=== PATIENT | female | born 1970 | race Caucasian/White ===

== ENCOUNTER → 2017-11-11 06:57 | Outpatient (CLI) | payer MEDICARE, SELFPAY ==
--- NOTE | 2017-11-11 09:54 | STRESSREP ---
Stress Test Report Date: 11/11/2017 Procedure: Pharmacologic stress nuclear imaging study Indications: Chest pain; shortness of breath/dyspnea Consent: Per the patient Procedure: The patient underwent pharmacologic (Regadenoson) evaluation with a peak heart rate of 113 beats per minute (64 predicted maximal heart rate) and a peak blood pressure of 188/115 mmHg. The baseline ECG demonstrated sinus rhythm. The peak pharmacologic ECG demonstrated no obvious ECG changes. There were no cardiac dysrhythmias pretest, during pharmacologic infusion, or recovery. There was no complaint of chest discomfort during pharmacologic infusion or recovery. The examination was discontinued secondary to completion of protocol. Impression: 1. Pharmacologic (Regadenoson) evaluation 2. Peak pharmacologic ECG with no obvious ECG changes. 3. There were no cardiac dysrhythmias pretest, during pharmacologic infusion, or recovery 4. Nuclear images pending Myocardial perfusion imaging study: Technique: The patient was injected with 11.9 millicuries of technetium 99m Cardiolite and subsequently rest SPECT Cardiolite nuclear imaging was obtained in the horizontal long, vertical long, and short axis views. The patient underwent pharmacologic (Regadenoson) evaluation with a peak heart rate of 113 beats per minute (64 % percent predicted maximal heart rate) and a peak blood pressure of 118/115 mmHg. The patient was injected with 33.1 millicuries of technetium 99m Cardiolite and subsequently stress SPECT Cardiolite nuclear imaging was obtained in the horizontal long, vertical long, and short axis views. A gated Cardiolite study at peak stress was obtained. Interpretation: Rest and stress SPECT Cardiolite nuclear imaging status post realignment, normalization, and attenuation correction demonstrate a small area of subtle diminished tracer uptake near the apical segments without significant change between rest and stress. There is end systolic thickening and brightening. The gated Cardiolite study demonstrates myocardial thickening and inward wall motion. The reported LVEF is 46 %. Impression: 1. And stress SPECT Cardiolite nuclear imaging demonstrate a small area of subtle diminished tracer uptake near the apical segments without significant change between rest and stress appearing compatible with physiologic apical thinning with no myocardial perfusion changes consider diagnostic for associated stress-induced myocardial ischemia or previous myocardial injury/infarction. 2. The gated Cardiolite study reports an LVEF of 46 %. This note was generated with [employer] software. It may contain incorrect words, spelling, and punctuation that were not noted in checking the note before signing.
--- NOTE | 2017-11-11 09:57 | STRESSREP_ITS ---
Stress Test Report Date: 11/11/2017 Procedure: Pharmacologic stress nuclear imaging study Indications: Chest pain; shortness of breath/dyspnea Consent: Per the patient Procedure: The patient underwent pharmacologic (Regadenoson) evaluation with a peak heart rate of 113 beats per minute (64 predicted maximal heart rate) and a peak blood pressure of 188/115 mmHg. The baseline ECG demonstrated sinus rhythm. The peak pharmacologic ECG demonstrated no obvious ECG changes. There were no cardiac dysrhythmias pretest, during pharmacologic infusion, or recovery. There was no complaint of chest discomfort during pharmacologic infusion or recovery. The examination was discontinued secondary to completion of protocol. Impression: 1. Pharmacologic (Regadenoson) evaluation 2. Peak pharmacologic ECG with no obvious ECG changes. 3. There were no cardiac dysrhythmias pretest, during pharmacologic infusion, or recovery 4. Nuclear images pending Myocardial perfusion imaging study: Technique: The patient was injected with 11.9 millicuries of technetium 99m Cardiolite and subsequently rest SPECT Cardiolite nuclear imaging was obtained in the horizontal long, vertical long, and short axis views. The patient underwent pharmacologic (Regadenoson) evaluation with a peak heart rate of 113 beats per minute (64 % percent predicted maximal heart rate) and a peak blood pressure of 118/115 mmHg. The patient was injected with 33.1 millicuries of technetium 99m Cardiolite and subsequently stress SPECT Cardiolite nuclear imaging was obtained in the horizontal long, vertical long, and short axis views. A gated Cardiolite study at peak stress was obtained. Interpretation: Rest and stress SPECT Cardiolite nuclear imaging status post realignment, normalization, and attenuation correction demonstrate a small area of subtle diminished tracer uptake near the apical segments without significant change between rest and stress. There is end systolic thickening and brightening. The gated Cardiolite study demonstrates myocardial thickening and inward wall motion. The reported LVEF is 46 %. Impression: 1. And stress SPECT Cardiolite nuclear imaging demonstrate a small area of subtle diminished tracer uptake near the apical segments without significant change between rest and stress appearing compatible with physiologic apical thinning with no myocardial perfusion changes consider diagnostic for associated stress-induced myocardial ischemia or previous myocardial injury/ infarction. 2. The gated Cardiolite study reports an LVEF of 46 %. This note was generated with [employer] software. It may contain incorrect words, spelling, and punctuation that were not noted in checking the note before signing.
== END ==
PROVIDERS: Family Provider Family Medicine; PCP Family Medicine; Visit Provider Family Medicine
DX: J98.4 Other disorders of lung (principal); R06.09 Other forms of dyspnea
CPT/HCPCS: 78452; 93017; A9500; A4216; J2785

== ENCOUNTER → 2018-12-20 14:41 | Outpatient (CLI) | payer MEDICARE, SELFPAY ==
--- NOTE | 2018-12-20 14:45 | ECHOD_ITS ---
Reason For Study: Dilated Cardiomyopathy Procedure This was a 2D Doppler, Color Flow transthoracic echocardiogram. The exam was of adequate technical quality. Exam performed in department. Left Ventricle Borderline to mildly dilated left ventricle. Mild global left ventricular systolic dysfunction. The estimated ejection fraction is 45 %. Diastolic function is indeterminate. Right Ventricle Normal RV size. Normal systolic function. Atria The left atrium is mildly enlarged. Normal right atrium. No doppler evidence for ASD. Mitral Valve There is no mitral annular calcification. Normal mitral valve. Moderate (2+) mitral valve insufficiency. Tricuspid Valve The tricuspid valve is not well visualized. Moderate (2+) tricuspid valve insufficiency. Right ventricular systolic pressure estimated to be 52 mmHg. Aortic Valve Trisinus/trileaflet aortic valve. Normal aortic valve. Trivial aortic valve insufficiency. Pulmonic Valve The pulmonic valve is not well visualized. Great Vessels The aortic root is not well visualized peer. Pericardium/Pleural No pericardial effusion. MMode/2D Measurements & Calculations LVIDd: 5.2 cm IVSd: 1.3 cm LA dimension: 3.9 cm LVIDs: 3.9 cm LVPWd: 1.1 cm RVDd: 3.6 cm FS: 24.5 % LAV(MOD-bp): 79.8 ml LVAd ap4: 35.1 cm2 SV(MOD-sp4): 56.1 ml LAV(MOD-bp) Indexed: 42.0 ml/m2 EDV(MOD-sp4): 122.2 ml LAV(MOD-sp2): 73.8 ml EDV(sp4-el): 128.3 ml LAV(MOD-sp4): 81.8 ml LVAs ap4: 24.6 cm2 ESV(MOD-sp4): 66.1 ml ESV(sp4-el): 67.8 ml EF(MOD-sp4): 45.9 % EF(sp4-el): 47.1 % SV(sp4-el): 60.5 ml LA A4 area: 25.0 cm2 RA A4 area: 18.9 cm2 Time Measurements MV dec time: 0.14 sec Doppler Measurements & Calculations MV E max narayan: 104.7 cm/sec Lat Peak E' Narayan: 9.5 cm/sec Med Peak E' Narayan: 8.7 cm/sec MV A max narayan: 44.9 cm/sec E/E' lat: 11.0 E/E' med: 12.0 MV E/A: 2.3 MV V2 max: 126.8 cm/sec MV P1/2t max narayan: 128.6 cm/sec Ao V2 max: 120.4 cm/sec MV max P.4 mmHg MV P1/2t: 66.6 msec Ao max P.8 mmHg MV V2 mean: 56.0 cm/sec MV mean P.7 mmHg MV dec slope: 565.8 cm/sec2 MV V2 VTI: 25.5 cm MVA(P1/2t): 3.3 cm2 LV V1 max: 107.7 cm/sec MR max narayan: 572.8 cm/sec PA V2 max: 63.4 cm/sec LV V1 max P.6 mmHg MR max P.2 mmHg MR mean narayan: 432.1 cm/sec MR mean P.1 mmHg MR VTI: 186.1 cm TR max narayan: 350.0 cm/sec TR max P.0 mmHg Interpretation Summary Borderline to mildly dilated left ventricle. Mild global left ventricular systolic dysfunction. The estimated ejection fraction is 45 %. The left atrium is mildly enlarged. Moderate (2+) mitral valve insufficiency. Moderate (2+) tricuspid valve insufficiency. Trivial aortic valve insufficiency. Right ventricular systolic pressure estimated to be 52 mmHg. Diastolic function is indeterminate. Ordering Physician: AGUSTIN PLATT Referring Physician: [facility] Doctor, Out of Performed By: Elvin Feliz RCS
== END ==
PROVIDERS: Family Provider Family Medicine; PCP Family Medicine
DX: I42.0 Dilated cardiomyopathy (principal)
CPT/HCPCS: 93306